=== PATIENT | female | born 1955 | race Asian ===

== ENCOUNTER 2017-03-04 17:47 | Emergency (ER) | payer OTHER ==
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
[2017-03-04 20:48] VITALS: BP 125/83
== END 2017-03-04 20:48 | disposition home or self-care (01) ==
LOC: ED 17:47
DX: S29.012A Strain of muscle and tendon of back wall of thorax, initial encounter (principal); S39.012A Strain of muscle, fascia and tendon of lower back, initial encounter; V89.2XXA Person injured in unspecified motor-vehicle accident, traffic, initial encounter; Y93.89 Activity, other specified; Y92.89 Other specified places as the place of occurrence of the external cause; Y99.8 Other external cause status
CPT/HCPCS: 99282